=== PATIENT | male | born 1955 | race Caucasian/White ===

== ENCOUNTER → 2020-12-10 14:40 | Outpatient (CLI) | payer MEDICARE, MEDICAID, SELFPAY ==
--- NOTE | ~2020-12-10 | CT_ITS ---
EXAMINATION:CT lung screening DATE: 12/10/2020 14:53 INDICATION: Encounter for screening for malignant neoplasms of respiratory organs. Smoker who quit 13 years ago with 30 pack year history. TECHNIQUE: Computed tomography (CT) of the chest was performed without intravenous contrast. Automate d exposure control and iterative reconstruction technique were employed. The dose-length product (DLP ) was 153.72 mGy-cm. COMPARISON: None. FINDINGS: There is mild emphysema. There is mild atelectasis bilaterally. A calcified left lung nodul e and calcified left hilar and mediastinal lymph nodes are consistent with old granulomatous disease. There is mild scarring at the lung apices. No pleural effusion. The heart size is normal. There are coronary artery calcifications. No pericardial effusion. There is bilateral gynecomastia. There is mi ld thoracic spondylosis. IMPRESSION: 1. Lung-RADS category 2: Benign appearance or behavior. Continue annual screening with noncontrast lo w-dose chest CT in 12 months. Reviewed, dictated and finalized at location A. IMPRESSION: 1. Lung-RADS category 2: Benign appearance or behavior. Continue annual screeni ng with noncontrast low-dose chest CT in 12 months.
== END ==
PROVIDERS: PCP Family Medicine; Visit Provider Family Medicine
DX: Z12.2 Encounter for screening for malignant neoplasm of respiratory organs (principal); Z87.891 Personal history of nicotine dependence
CPT/HCPCS: 71271

== ENCOUNTER 2021-12-29 08:01 | Outpatient (CLI) | payer MEDICARE, MEDICAID, SELFPAY ==
[2021-12-29 18:29] LABS: Hematocrit 46.5 % (42.0-52.0); Hemoglobin 15.1 g/dL (14.0-18.0); Mean Corpuscular HGB Conc 32.5 g/dl (32-36); Mean Corpuscular Hemoglobin 32.3 pg (26-34); Mean Corpuscular Volume 99.4 fl (80-100); Mean Platelet Volume 11.7 fl (7.4-10.4); Platelet Count Result 192 k/mm3 (150-375); Red Blood Count 4.68 M/mm3 (4.6-6.20); White Blood Count 5.9 K/mm3 (4.5-10.0)
[2021-12-29 18:45] LABS: Hemoglobin A1C 4.9 % (<5.7)
[2021-12-29 18:49] LABS: Alanine Aminotransferase 32 U/L (6-50); Albumin Level 4.3 g/dL (3.5-5.1); Alkaline Phosphatase 91 U/L (38-126); Anion Gap 7 mmol/L (8-16); Aspartate Amino Transferase 74 U/L (17-59); Blood Urea Nitrogen 11 mg/dL (9-20); Calcium 9.1 mg/dL (8.4-10.2); Carbon Dioxide 28 mmol/L (22-30); Chloride 104 mmol/L (98-107); Cholesterol 182 mg/dL (0-200); Estimated Glomerular Filt Rate > 60; Glucose 87 mg/dL (65-110); HDL Direct 104 mg/dL; Potassium 4.6 mmol/L (3.4-5.0); Sodium 139 mmol/L (137-145); Triglycerides 46 mg/dL (<150)
[2021-12-29 19:02] LABS: LDL Cholesterol Direct 65 mg/dL
[2021-12-29 19:19] LABS: Prostate Specific Antigen 1.3 ng/mL (< OR = 4.0)
[2021-12-29 19:27] LABS: Vitamin D 25 Hydroxy 41.7 ng/mL
== END 2021-12-29 08:02 | disposition home or self-care (01) ==
PROVIDERS: PCP Family Medicine; Visit Provider Family Medicine
DX: E53.8 Deficiency of other specified B group vitamins (principal); E55.9 Vitamin D deficiency, unspecified; E78.5 Hyperlipidemia, unspecified; R73.9 Hyperglycemia, unspecified; Z12.5 Encounter for screening for malignant neoplasm of prostate; Z13.29 Encounter for screening for other suspected endocrine disorder
CPT/HCPCS: 36415; 80053; 80061; 82306; 82607; 83036; 84153; 84443; 85027; G0103

== ENCOUNTER → 2022-12-12 09:26 | Outpatient (CLI) | payer MEDICARE, MEDICAID, SELFPAY ==
--- NOTE | ~2022-12-12 | CT_ITS ---
CT Scan of the Chest without Contrast: Clinical Indication: Lung cancer screening, personal history of nicotine dependence Technique: Contiguous sections were acquired throughout the chest without intravenous contrast. Dose reduction technique was used on this scan by utilizing automated exposure control and iterative recon struction technique. The dose-length product (DLP) was 113.88 mGy-cm. COMPARISON: 12/10/2020 Findings: There is no evidence of any significant mediastinal, hilar or axillary lymphadenopathy. The mediastin al soft tissues appear normal. There is no evidence of pleural or pericardial effusion. Calcified left lower lobe granuloma noted. No other pulmonary nodule seen. Images through the upper abdomen reveal no abnormalities. Impression: Lung RADS 2: Benign appearance. 12 month follow-up screening CT advised. Reviewed, dictated and finalized at location . Impression: Lung RADS 2: Benign appearance. 12 month follow-up screening CT advised.
== END ==
PROVIDERS: PCP Family Medicine; Visit Provider Family Medicine
DX: Z12.2 Encounter for screening for malignant neoplasm of respiratory organs (principal); F17.210 Nicotine dependence, cigarettes, uncomplicated
CPT/HCPCS: 71271

== ENCOUNTER 2022-12-23 08:36 | Outpatient (CLI) | payer MEDICARE, MEDICAID, SELFPAY ==
--- NOTE | ~2022-12-23 | US_ITS ---
Ultrasound of the Abdominal Aorta INDICATION: Abdominal aortic aneurysm TECHNIQUE: Grayscale, color Doppler, and pulsed Doppler images of the aorta and common iliac arteries were obtained. COMPARISON: None. FINDINGS: Maximum vascular dimensions are as follows: Proximal aorta: 2.8 cm Mid aorta: 2.1 cm Distal aorta: 2.1 cm Right common iliac artery: 1.6 cm Left common iliac artery: 1.5 cm There is no evidence of abdominal aortic aneurysm. IMPRESSION: No evidence for abdominal aortic aneurysm. Reviewed, dictated and finalized at location M.
== END 2022-12-23 08:37 | disposition home or self-care (01) ==
PROVIDERS: PCP Family Medicine; Visit Provider Family Medicine
DX: Z13.6 Encounter for screening for cardiovascular disorders (principal); Z87.891 Personal history of nicotine dependence
CPT/HCPCS: 76706

== ENCOUNTER 2023-12-07 08:24 | Outpatient (CLI) | payer OTHER, MEDICAID, SELFPAY ==
[2023-12-07 13:35] LABS: Hematocrit 45.5 % (42.0-52.0); Hemoglobin 15.1 g/dL (14.0-18.0); Mean Corpuscular HGB Conc 33.2 g/dl (32-36); Mean Corpuscular Hemoglobin 33.2 pg (26-34); Platelet Count Result 166 k/mm3 (150-375); Red Blood Count 4.55 M/mm3 (4.6-6.20); Red Cell Distribution Width 12.7 % (11.5-14.5); White Blood Count 4.8 K/mm3 (4.5-10.0)
[2023-12-07 14:35] LABS: LDL Cholesterol Direct 54 mg/dL
[2023-12-07 14:55] LABS: Prostate Specific Antigen 0.9 ng/mL (< OR = 4.0)
[2023-12-07 15:17] LABS: Alanine Aminotransferase 30 U/L (6-50); Albumin Level 4.1 g/dL (3.5-5.1); Alkaline Phosphatase 94 U/L (38-126); Anion Gap 4 mmol/L (4-12); Aspartate Amino Transferase 75 U/L (17-59); Bilirubin,Total 0.9 mg/dL (0.2-1.3); Blood Urea Nitrogen 11 mg/dL (9-20); Calcium 8.7 mg/dL (8.4-10.2); Carbon Dioxide 30 mmol/L (22-30); Chloride 104 mmol/L (98-107); Cholesterol 178 mg/dL (0-200); Estimated Glomerular Filt Rate > 60; Glucose 91 mg/dL (65-110); HDL Direct 109 mg/dL; Sodium 138 mmol/L (137-145); Triglycerides 51 mg/dL (<150)
[2023-12-07 18:20] LABS: Vitamin D 25 Hydroxy 37.2 ng/mL
== END 2023-12-07 08:25 | disposition home or self-care (01) ==
PROVIDERS: PCP Family Medicine; Visit Provider Family Medicine
DX: E78.5 Hyperlipidemia, unspecified (principal); Z00.00 Encounter for general adult medical examination without abnormal findings; R73.03 Prediabetes; E03.9 Hypothyroidism, unspecified; Z12.5 Encounter for screening for malignant neoplasm of prostate; E55.9 Vitamin D deficiency, unspecified; E53.8 Deficiency of other specified B group vitamins
CPT/HCPCS: 36415; 80053; 80061; 82306; 82607; 83036; 84153; 84443; 85027; G0103

== ENCOUNTER 2024-12-09 08:20 | Outpatient (CLI) | payer OTHER, SELFPAY ==
--- OUTSIDE RECORDS SUMMARY | 2024-12-09 08:32 | XMS_ITS | Clinical Summary ---
Author Organization [facility] Address [address] [address] Phone Care Team Providers Care Jack Spooler Tender Name Role Phone Yoselyn Cortes MD Primary Care Provider Allergies Active Allergy Reactions Criticality Noted Date Comments Penicillins Rash,Swelling 12/30/2016 Medications ASPIRIN PO 81 mg daily. Active Holley-3 Fatty Acids (FISH OIL PO) 1,200 mg daily. Acti ve FIBER PO 2 a day Active docusate sodium (COLACE) 100 MG Capsule Take 100 mg by mouth 2 times daily. Active polyethylene glycol (GLYCOLAX, MIRALAX) PackIndications: Chronic idiopathic constipation Take 1 Packet by mouth daily. Dissolve in 4-8 oz of liquid. 90 Packet 3 7 Active Additional Information Patient not taking.Reported on 10/21/2022 MULTIPLE VITAMIN PO Take 1 Tab by mouth daily. Active atorvastatin (LIPITOR) 20 MG Tablet Take 20 mg by mouth daily. Active latanoprost (XALATAN) 0.005 % Solution Place 1 Drop in affected eye(s) nightly. Active brimonidine (ALPHAGAN) 0.15 % Solution Place 1 Drop in affected eye(s) 3 times daily. Active dorzolamide (TRUSOPT) 2 % Solution Place 1 Drop in affected eye(s) 3 times daily. Active Cyanocobalamin (VITAMIN B 12 PO) Take by mouth daily. Active Active Problems Problem Noted Date Diagnosed Date Right hip pain Overview (04/06/2015): S/p fall replacement Family History Medical History Relation Name Comments Alzheimer's Disease Father Breast Cancer Mother Cancer Mother Relation Name Status Comments Father Mother Social History Tobacco Use Types Packs/Day Years Used Date Smoking Tobacco: Former Cigarettes 1 22 1 987 - 2008 Smokeless Tobacco: Never Comments:Quit at age 52 Alcohol Use Standard Drinks/Week Comments Yes 12 (1 standard drink = 0.6 oz pu re alcohol) Sex and Gender Information Value Date Recorded Sex Assigned at Not on file Legal Sex Male 9:51 PM CDT Gender Identity Not on file Sexual Orientation Not on file Last Filed Vital Signs Vital Sign Reading Time Taken Comments Blood Pressure 93/72 11/04/2022 8:52 AM CDT Pulse 61 11/04/2022 8:52 AM CDT Temperature 37 C (98.6 F) 11/04/2022 7:08 AM CDT Respiratory Rate 23 11/04/2022 8:52 AM CDT Oxygen Saturation 100% 11/04/2022 8:52 AM CDT Inhaled Oxygen Concentration - - Weight 83.9 kg (185 lb) 10/21/2022 7:00 AM CDT Height 195.6 cm (6' 5) 10/21/2022 7:00 AM CDT Body Mass Index 21.94 10/21/2022 7:00 AM CDT Plan of Treatment Health Maintenance Due Date Last Done Comments Hepatitis C Virus (HCV) Screening 1955 Cologuard 2002 Immunochemical Fecal Occult Blood 2002 Pneumococcal Immunization (50+ years) (1 of 1 - PCV) 07/29/2007 Zoster Immunization (2 of 3) 09/07/2016 07/13/2016 SARS-COV-2 Immunization ( season) 2023 01/04/2022, 08/19/2020, 07/29/2020 Influenza Immunization (#1) 12/16/202401/15, 03/03/2015, 02/27/2014, Additional history exists Colonoscopy 11/05/2027 11/04/2022, 04/17, 09/12/2013 Colorectal Cancer Screening 11/05/2027 Respiratory Syncytial Virus (RSV) Immunization (Adult) (1 - 1-dose 75+ series) 2032 DTaP/Tdap/Td Immunization Discontinued 12/13/2021 TdaP Immunization Completed 12/13/2021 Hepatitis B Immunization Aged Out No longer eligible based on patient's age to complete this topic Human Papillomavirus (HPV) Immunization Aged Out No longer eligible based on patient's age to complete this topic Meningococcal Immunization (ACWY) Aged Out No longer eligible based on patient's age to complete this topic Rotavirus Immunization Aged Out No lo nger eligible based on patient's age to complete this topic Medical Devices Implanted Type Area Superintendent Maintenance Device Identifier Shelf Expiration Date Model / Serial / Lot Clip Hemostatic Resolution 360 Ultra 17mm Opening 235cm Rotatable Control [place] [employer] - [id number] Implanted:Qty: 1 on 11/04/2022 by Fantasma Waller MD at [facility] IMPLANT N/A: Colon bettermarks 05/24/2025 [id number] / [id number] / [id number] Procedures Procedure Name Priority Date/Time Associated Diagnosis Comments COLONOSCOPY Routine 09/12/2013 from Last 3 Months or Most Recently Relevant to Health Maintenance Results * COLONOSCOPY (09/12/2013) Blake Lang MD PROCEDURE/MINOR SURGICAL ORDERA BLES Final Result from Last 3 Months or Most Recently Relevant to Health Maintenance Insurance [facility]IC[email or web address] [place] Care Teams Jack Spooler Tender Relationship Specialty Start Date End Date Yoselyn Cortes MD PCP - General Family Medicine 04/27/17
--- OUTSIDE RECORDS SUMMARY | 2024-12-09 08:32 | XMS_ITS | Clinical Summary ---
Author Organization [facility] Address [address] Lorenz: Epic Prelude ADT [place] [address] Care Team Providers Care Coffee Taster Name Role Phone Unavailable Primary Care Provider Unavailabl e Immunizations Immunization Administration Dates Next Due INFLUENZA VACCINE HIGH DOSE QUADRIVALENT 65 YR U P PF IM 02/20/2023 INFLUENZA VACCINE HIGH DOSE TRIVALENT SPLIT VIRUS, (65 YR UP), 0.5ML (PF), IM 01/31/2024 INFLUENZA VACCINE QUADRIVALENT 6 MOS UP PF IM Social History Tobacco Use Types Packs/Day Years Used Date Smoking Tobacco: Never Assessed Sex and Gender Information Value Date Recorded Sex Assigned at Not on file Legal Sex Male 3:27 PM CDT Gender Identity Not on file Sexual Orientation Not on file Plan of Treatment Health Maintenance Due Date Last Done Comments DTAP/TDAP/TD VACCINES (1 - Tdap) 1976 COLORECTAL SCREENING 2002 Colorectal Cancer Screening 2002 FIT-DNA Q 3 years 2002 FIT/FOBT Q 1 year 2002 Flex Sig/CT Colonography Q 5 years 2002 PNEUMOCOCCAL VACCINE 50+ YEA RS (1 of 1 - PCV) 07/29/2007 ZOSTER VACCINE (1 of 2) 07/29/2007 INFLUENZA VACCINE (#1) 2024 , 02/20/2023, 01/31/2022 RSV VACCINE (60+ or ) (1 - 1-dose 75+ series) 2032 Insurance RX MEDIMPACT Member Subscriber Plan / Payer (Ef fective 2024-Present) Name:Gavin Arrington Relation to Subscriber:Self Name:Gavin Arrington Subscriber ID:Not on file Payer ID:Not on file Group ID:[id number] Type:RX Medicare Part D Address: [place]
--- OUTSIDE RECORDS SUMMARY | 2024-12-09 08:32 | XMS_ITS | Clinical Summary ---
Author Organization [facility] Address [address] [place] [address] Care Team Providers Care Director Of Accounts Receivable Name Role Phone Yoselyn Cortes MD Primary Care Provider Allergies Active Allergy Reactions Criticality Noted Date Comments Penicillins Rash Medium 08/04/2017 Medications multivitamin tabletIndicatio ns:Vitamin Deficiency Prevention Take 1 tablet by mouth every morning. Active polyethylene glycol (MIRALAX) 17 gram packetIndicatio ns:constipation Take 17 g by mouth as needed. 12/30/2016 Active aspirin 81 mg tabletIndicatio ns:HEART HEALTH Take 81 mg by mouth every morning. Active atorvastatin (LIPITOR) 20 mg tabletIndicatio ns:CHOLESTEROL Take 20 mg by mouth nightly. 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 Assessment & Plan (10/12/2017 9:19 AM CDT): - large vertical deviation not amenable to prism correction - could consider surgical repair, but given h/o ERM s/p MP with distortion of image, cautious outcomes discussed at length with pt with uncertain fusional ability - could consider refractive monocular vision - after discussion, pt prefers to pursue surgical strabismus correction first to attempt to restore binocular vision, voiced understanding that this ultimately may not be possible given distortion in right eye Primary open angle glaucoma (POAG) of right eye, mild stage 09/26/2017 Assessment & Plan (10/22/2019 11:59 AM CDT): By VF advanced but cupping is modest. VF has been stable over 2 years. Do not recommend lower target. Prefer observation unless IOP in 20's or VF worse. For OS - doing well, IOP at goal. F/U Dr. Bradford for yearly HVF/OCT and IOP check Q6 months Assessment & Plan (01/09/2018 11:27 AM CDT): Cupping out of proportion of visual field (VF) loss likely related to multiple surgeries, laser and cryo. intraocular pressure (IOP) goal mid to low teens. Discussed difficulties with drops but patient does not want additional procedures. SLT unlikely to give much benefit but can consider. GATT another option vs tube shunt surgery. Only on 81mg ASA. Recommend yearly Castro visual field (HVF) and Q4-6 month intraocular pressure (IOP) check with optometry. Assessment & Plan (09/26/2017 9:05 AM CDT): SECONDARY TO MULTIPLE SURGERIES. intraocular pressure (IOP) at goal today Intraocular pressure was 17 in the right eye and 18 in the left eye using Applanation.. Recheck with Castro visual field (HVF)/OCT and depending on degree of damage will determine goal. May be able to follow with optom. 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 Surgical History Surgery Date Site/Laterality Comments CATARACT EXTRACTION W/ INTRA OCULAR LENS IMPLANT 04/17/2016 - 04/16/2017 Right TOTAL HIP ARTHROPLASTY 04/17/1993 - 04/16/1994 Right PARS PLANA REPAIR OF RETINAL DEATACHMENT 04/17/2016 - 04/16/2017 Medical History Medical History Date Comments Osteoarthritis Hyperlipemia Social History Tobacco Use Types Packs/Day Years Used Date Smoking Tobacco: Former Cigarettes 977 - 2007 Smokeless Tobacco: Never Alcohol Use Standard Drinks/Week Comments Yes 5 (1 standard drink = 0.6 oz pur e alcohol) Sex and Gender Information Value Date Recorded Sex Assigned at Not on file Legal Sex Male 3:02 AM BOWLING BALL ENGRAVER Gender Identity Male 10/21/2019 2:26 PM CDT Sexual Orientation Straight 10/21/2019 2: 26 PM CDT Obstetrics History Last Filed Vital Signs Vital Sign Reading Time Taken Comments Blood Pressure 120/83 12/07/2017 4:30 PM CDT Pulse 62 12/07/2017 4:30 PM CDT Temperature 36.4 C (97.5 F) 12/07/2017 3:49 PM CDT Respiratory Rate 17 12/07/2017 4:30 PM CDT Oxygen Saturation 97% 12/07/2017 4:30 PM CDT Inhaled Oxygen Concentration - - Weight 87.3 kg (192 lb 6.4 oz) 06/08/2021 2:02 P M BOWLING BALL ENGRAVER Height 188 cm (6' 2) 06/08/2021 2:02 PM BOWLING BALL ENGRAVER Body Mass Index 24.7 06/08/2021 2:02 PM BOWLING BALL ENGRAVER Plan of Treatment Not on file Medical Devices Implanted Type Area Automotive Collision Estimator Device Identifier Shelf Expiration Date Model / Serial / Lot Artificial Joint Right: Hip Insurance UHC MEDICARE ADVANTAGE [facility] Address: [address] [address] [place] [address] [facility] MDCR HMO REF [facility] Address: [address] [address] [place] [address] [place] [address] Care Teams Director Of Accounts Receivable Relationship Specialty Start Date End Date Yoselyn Cortes MD PCP - General Family Practice 09/26/17
[2024-12-09 14:38] LABS: Hematocrit 45.4 % (42.0-52.0); Hemoglobin 14.9 g/dL (14.0-18.0); Immature Granulocyte Percent A 0.2 % (0-0.5); Lymphocytes Absolute Auto 1.09 K/mm3 (0.9-3.2); Mean Corpuscular HGB Conc 32.8 g/dl (32-36); Mean Corpuscular Hemoglobin 32.3 pg (26-34); Mean Corpuscular Volume 98.3 fl (80-100); Nucleated Red Blood Cells Absolute Auto 0.000 K/mm3 (0.0-0.012); Nucleated Red Blood Cells Perc 0.0 % (0.0-0.2); Platelet Count Result 183 k/mm3 (150-375); Red Blood Count 4.62 M/mm3 (4.6-6.20); White Blood Count 5.4 K/mm3 (4.5-10.0)
[2024-12-09 15:08] LABS: Hemoglobin A1C 4.7 % (<5.7)
[2024-12-09 15:24] LABS: Alanine Aminotransferase 32 U/L (6-50); Albumin Level 4.2 g/dL (3.5-5.1); Alkaline Phosphatase 98 U/L (38-126); Anion Gap 6 mmol/L (4-12); Aspartate Amino Transferase 74 U/L (17-59); Bilirubin,Total 0.7 mg/dL (0.2-1.3); Blood Urea Nitrogen 11 mg/dL (9-20); Calcium 9.0 mg/dL (8.4-10.2); Carbon Dioxide 27 mmol/L (22-30); Chloride 105 mmol/L (98-107); Cholesterol 200 mg/dL (0-200); Estimated Glomerular Filt Rate > 60; Glucose 87 mg/dL (65-110); Potassium 4.5 mmol/L (3.4-5.0); Sodium 138 mmol/L (137-145); Total Protein 7.2 g/dL (6.3-8.2); Triglycerides 47 mg/dL (<150)
[2024-12-09 15:46] LABS: HDL Direct 114 mg/dL
[2024-12-09 15:59] LABS: Prostate Specific Antigen 1.0 ng/mL (< OR = 4.0)
[2024-12-09 16:18] LABS: Vitamin B12 692.0 pg/mL (239-931)
[2024-12-09 16:22] LABS: Thyroid Stimulating Hormone Reflex 1.310 uIU/mL (0.465-4.68)
== END 2024-12-09 08:21 | disposition home or self-care (01) ==
LOC: ANHGOSHLAB 08:22
PROVIDERS: PCP Family Medicine; Visit Provider Family Medicine
DX: E53.8 Deficiency of other specified B group vitamins (principal); Z12.5 Encounter for screening for malignant neoplasm of prostate; I10 Essential (primary) hypertension; E55.9 Vitamin D deficiency, unspecified; E78.5 Hyperlipidemia, unspecified; R73.9 Hyperglycemia, unspecified
CPT/HCPCS: 36415; 80053; 80061; 82306; 82607; 83036; 84153; 84443; 85025; G0103

== ENCOUNTER 2025-01-09 01:06 | Day surgery (SDC) | payer OTHER, MEDICAID, SELFPAY ==
[2025-01-01 15:01] VITALS: BMI 22.5
[2025-01-09 12:04] VITALS: BMI 21.9
[2025-01-09 12:07] VITALS: BP 134/92; PULSE 84; RESP 20; TEMP 36.5; O2SAT 99
[2025-01-09] MEDS: LACTATED RINGERS 1,000 ML 150 ML IV CONT (12:16)
--- NOTE | 2025-01-09 12:16 | P.PNAN_ITS ---
Anes - Initial Pre Proc Eval Procedure: Operation Date: 01/09/25 13:00 Proposed Procedures p Screening Colonoscopy - Jamaal Odell MD Date/Time: 01/09/25 12:16 Surgeon: Jamaal Odell MD Pre Op Diagnosis: positive cologuard/screening Patient Data Age: 69 Gender: M Height: 1.93 m Weight: 81.5 kg Last Vital Signs Temp 36.5 C 01/09/25 12:07 Pulse 84 01/09/25 12:07 Resp 20 01/09/25 12:07 BP 134/92 H 01/09/25 12:07 Pulse Ox 99 01/09/25 12:07 O2 Del Method Room Air 01/09/25 12:07 Allergies Allergy/AdvReac Type Severity Reaction Status Date / Time Penicillins Allergy Unknown Unknown Verified 01/09/25 12:03 Home Medications ?Medication ?Instructions ?Recorded ?Confirmed ?Type aspirin 81 mg tablet,delayed 81 mg PO DAILY 11/11/19 0 01/09/25 History release (Aspir-) brimonidine 0.15 % eye drops 1 drop ophthalmic (eye) Q 8H 11/12/19 01/09/25 History dorzolamide 2 %-timolol 0.5 % (PF) 1 drop ophthalmic ( eye) BID 11/12/19 01/09/25 History eye drops latanoprost 0.005 % eye drops 1 drop ophthalmic (eye) DAILY 11/12/19 01/09/25 History cyanocobalamin (vitamin B-12) 1,000 mcg sublingual SHARONA LY #90 tabs 12/30/21 01/09/25 Rx 1,000 mcg sublingual tablet atorvastatin 20 mg tablet 20 mg PO QHS #90 tabs 01/09/25 Rx fluticasone propionate 50 2 spray intranasal DAILY PRN 12/02/24 01/09/25 History mcg/actuation nasal allergy symptoms spray,suspension (Flonase Allergy Relief) Patient hx anesthesia problems: none Family hx anesthesia problems: none Results Review: All pre-operative results and documents have been reviewed as part of the pre- operative evaluation. [facility], [facility] Past Medical History Medical History Other penitentiary (current) drug therapy Constipation, chronic COPD (chronic obstructive pulmonary disease) Orbit fracture Knee fracture Hip fracture Rosacea (~07/2013) Dyslipidemia Unspecified osteoarthritis, unspecified site Tendonitis of left rotator cuff Surgical History Surgical History History of surgery on right wrist (~1991) ORIF of right wrist fracture History of hip replacement (~1993) Right 1994 History of eye surgery (~12/05/16) retinal reattachment Family History Family History Mother Family history of malignant neoplasm of breast in first degree relative Other Malignant neoplasm of prostate Social History Social History Smoking status: Former smoker Tobacco type: cigarettes Smoking end date: 07/29/07 Alcohol intake: current Drinks per week: 5 Alcohol use details: drinks a couple times a week Substance use: never Substance use type: does not use Lack of Transportation: No Lack of Food: Never True Current Housing: I Have Housing Concerned About Future Housing: No Difficulty Paying Gas/Electric Bills: YES Difficulty Paying for Meds: No Currently Unemployed: No Education: High School Diploma/GED Difficulty w/ Childcare or Family Care: No Living arrangements: with friend(s) Occupation/Education: retired Gender identity (if verbalized by the patient): Male Spiritual care concerns: No Agree to blood products: Yes Anes - Eval Final PreProcedure Day of Procedure 01/09/25 12:16 Patient weight: normal Heart: regular rate and rhythm Lungs: decreased breath sounds Airway: Mallampati scale class II Neurological: alert and oriented Last oral intake: >/= 8 hours ASA classification: III Emergent: no Anesthetic plan: proceed Anesthesia type and monitoring: general GIVS and standard monitoring Results Review: All pre-operative results and documents have been reviewed as part of the pre- operative evaluation. Informed Consent: The patient's anesthetic plan and its attendant risks and benefits were discussed with the patient/family/POA. Questions were solicited and answers provided to the satisfaction of the patient/family/POA.
--- NOTE | 2025-01-09 13:30 | PM.HPGS ---
History of Present Illness History of Present Illness Consent: Risks, benefits, and alternatives have been discussed and questions answered. Patient agrees to proceed with procedure. Chief complaint: positive cologuard/screening Narrative: Gavin Arrington is a 69 year old male with + cologuard, last colonoscopy 2018 with polyps Review of Systems Review of Systems: All systems reviewed & are unremarkable except as noted in HPI and below PMFSH Past Medical History Medical History Other longterm (current) drug therapy Constipation, chronic COPD (chronic obstructive pulmonary disease) Orbit fracture Knee fracture Hip fracture Rosacea (~07/2013) Dyslipidemia Unspecified osteoarthritis, unspecified site Tendonitis of left rotator cuff Surgical History Surgical History History of surgery on right wrist (~1991) ORIF of right wrist fracture History of hip replacement (~1993) Right 1994 History of eye surgery (~12/05/16) retinal reattachment Family History Family History Mother Family history of malignant neoplasm of breast in first degree relative Other Malignant neoplasm of prostate Social History Social History Smoking status: Former smoker Tobacco type: cigarettes Smoking end date: 07/29/07 Alcohol intake: current Drinks per week: 5 Alcohol use details: drinks a couple times a week Substance use: never Substance use type: does not use Lack of Transportation: No Lack of Food: Never True Current Housing: I Have Housing Concerned About Future Housing: No Difficulty Paying Gas/Electric Bills: YES Difficulty Paying for Meds: No Currently Unemployed: No Education: High School Diploma/GED Difficulty w/ Childcare or Family Care: No Living arrangements: with friend(s) Occupation/Education: retired Gender identity (if verbalized by the patient): Male Spiritual care concerns: No Agree to blood products: Yes Meds Home Medications and Allergies Home Medications ?Medication ?Instructions ?Recorded ?Confirmed ?Type aspirin 81 mg tablet,delayed 81 mg PO DAILY 11/11/19 01/09/25 History release (Aspir-) brimonidine 0.15 % eye drops 1 drop ophthalmic (eye) Q8H 11/12/19 01/09/25 History dorzolamide 2 %-timolol 0.5 % (PF) 1 drop ophthalmic (eye) BID 11/12/19 01/09/25 History eye drops latanoprost 0.005 % eye drops 1 drop ophthalmic (eye) DAILY 11/12/19 01/09/25 History cyanocobalamin (vitamin B-12) 1,000 mcg sublingual DAILY #90 tabs 12/30/21 01/09/25 Rx 1,000 mcg sublingual tablet atorvastatin 20 mg tablet 20 mg PO QHS #90 tabs 12/02/24 01/09/25 Rx fluticasone propionate 50 2 spray intranasal DAILY PRN 12/02/24 01/09/25 History mcg/actuation nasal allergy symptoms spray,suspension (Flonase Allergy Relief) Allergies Allergy/AdvReac Type Severity Reaction Status Date / Time Penicillins Allergy Unknown Unknown Verified 01/09/25 12:03 Vital Signs Vital Signs - 24 hr 01/09/25 12:07 Temperature 97.7 F Pulse Rate 84 Respiratory Rate 20 Blood Pressure 134/92 H Pulse Oximetry 99 Oxygen Delivery Room Air Exam Const: General: comfortable and no acute distress HENMT: Face/Nose/Sinus: Normal nares present Eyes: General: appearance normal, both eyes and all related structures Resp: Auscultation: clear to auscultation bilaterally GI: Inspection: non-distended GI Palp: Yes Soft to palpation Skin: General skin exam: normal color Neuro: Speech: normal speech Extrem: General: normal to inspection Psych: Mental Status: mental status grossly normal Assessment and Plan Assessment and plan (1) Positive colorectal cancer screening using Cologuard test: Code(s): R19.5 - Other fecal abnormalities Status: Acute Assessment and Plan: colonoscopy
--- NOTE | 2025-01-09 13:55 | S_PTH ---
PATIENT: Gavin Arrington LOC: [facility] Lara#:[id number] AGE/SX: 69/M ROOM: RE01/09/[address]: Jamaal Odell MD : 1955 BED: DIS: 01/09/2025 SPEC #: [id number] RECD: 01/09/25 14:04 STATUS: HARITHA CURTIS #: [id number] JULIETA: 01/09/25 13:[address]: Jamaal Odell DEPT: [facility] Surgical RECD BY: Dawn Whitaker ENTERED: 01/09/25 14:05 SP TYPE: Surgical OTHR DR: Yoselyn Cortes MD Tissues: A - Colon Polypectomy Procedures: Hematoxylin and Eosin Stain Gross and Microscopic Level 4
[2025-01-09 13:59] VITALS: BP 96/66; PULSE 68; RESP 16; O2SAT 99
[2025-01-09 14:09] VITALS: BP 95/61; PULSE 66; RESP 18; O2SAT 99
[2025-01-09 14:19] VITALS: BP 103/68; PULSE 62; RESP 18; O2SAT 100
== END 2025-01-09 14:34 | disposition home or self-care (01) ==
PROVIDERS: PCP Family Medicine; Referring Provider Family Medicine; Visit Provider Internal Medicine Gastroenterology
PROC: 0DJD8ZZ Inspection of Lower Intestinal Tract, Via Natural or Artificial Opening Endoscopic (ICD-10-PCS; CPT 45378; principal; 2025-01-09 13:00)
DX: D12.3 Benign neoplasm of transverse colon (principal); K64.8 Other hemorrhoids; K59.09 Other constipation; E78.5 Hyperlipidemia, unspecified; J44.9 Chronic obstructive pulmonary disease, unspecified; M19.90 Unspecified osteoarthritis, unspecified site; Z79.82 Long term (current) use of aspirin; Z79.899 Other long term (current) drug therapy; Z98.890 Other specified postprocedural states; Z87.891 Personal history of nicotine dependence; Z80.3 Family history of malignant neoplasm of breast; Z80.42 Family history of malignant neoplasm of prostate
CPT/HCPCS: 45385; 88305; J2003; J2704; J7120